=== PATIENT | male | born 1985 | race Caucasian/White ===

== ENCOUNTER 2021-12-22 12:49 | Inpatient (IN) | payer BC ==
[~2021-12-22] VITALS: Ht 190.5 cm; Wt 86.2 kg
--- NOTE | 2021-12-22 12:58 | NUR ---
TO ER BED 10. BIBS C/O ABDOMINAL PAIN, NAUSEA AND VOMITING X10 DAYS WORSENED THE LAST 3 DAYS.
[2021-12-22 13:46] LABS: BASOPHILS % (AUTO) 0.4 % (0.0-2.0); EOSINOPHILS % (AUTO) 0.4 % (0.0-6.0); HEMATOCRIT 47 % (39-51); HEMOGLOBIN 16.3 g/dL (13.5-17.5); LYMPHOCYTES % (AUTO) 11.6 % (20.0-44.0); MEAN CORPUSCULAR HGB CONC 35 g/dl (31.0-36.0); MEAN CORPUSCULAR VOLUME 88 fL (80-96); MONOCYTES # (AUTO) 0.4 K/uL (0.1-1.30); MONOCYTES % (AUTO) 4.5 % (2.0-12.0); NEUTROPHILS # (AUTO) 7.3 K/uL (1.8-8.9); NEUTROPHILS % (AUTO) 83.1 % (43.0-81.0); PLATELET COUNT (AUTO) 168 K/uL (150-450); RED BLOOD CELL COUNT(AUTO) 5.36 MIL/uL (4.5-6.0); WHITE BLOOD COUNT (AUTO) 8.8 K/uL (4.3-11.0)
--- NOTE | 2021-12-22 13:47 | NUR ---
DR ARELLANO AT THE BEDSIDE
[2021-12-22] MEDS ORDERED: ONDANSETRON HCL/PF 4 MG/2 ML VIAL ONE (13:50)
[2021-12-22] MEDS ORDERED: KETOROLAC TROMETHAMINE INJ 30 MG/ML VIAL ONE (13:50)
[2021-12-22] MEDS ORDERED: IV NS 0.9% 1,000 ML BAG IV ONE (14:00)
[2021-12-22] MEDS ORDERED: ONDANSETRON HCL/PF 4 MG/2 ML VIAL IVP ONE (14:00)
[2021-12-22] MEDS ORDERED: KETOROLAC TROMETHAMINE INJ 30 MG/ML VIAL IV ONE (14:00)
[2021-12-22 14:03] LABS: ALBUMIN 3.9 g/dL (3.4-5.0); BILIRUBIN,DIRECT 0.1 mg/dL (0.0-0.2); BILIRUBIN,TOTAL 0.6 mg/dL (0.2-1.0); CALCIUM, SERUM 8.9 mg/dL (8.5-10.1); CREATININE 0.9 mg/dL (0.6-1.3); POTASSIUM 3.8 mmol/L (3.5-5.1); TOTAL PROTEIN, SERUM 7.3 g/dL (6.4-8.2)
--- NOTE | 2021-12-22 15:02 | NUR ---
COVID TEST COLLECTED AND SENT
--- NOTE | 2021-12-22 17:40 | NUR ---
REPORT GIVEN TO DONATO FOR [facility]
[2021-12-22] MEDS ORDERED: ONDANSETRON HCL/PF 4 MG/2 ML VIAL IVP PRN (18:00)
[2021-12-22] MEDS ORDERED: MORPHINE SULFATE INJ 2 MG/ML DISP.SYRIN IV PRN (18:00)
--- NOTE | 2021-12-22 20:00 | NUR ---
[facility] SWAB COLLECTED AND SENT TO LAB. PATIENT'S BELONGINGS LIST DONE.
--- NOTE | 2021-12-22 20:25 | NUR ---
REPORT GIVEN TO JACKI PHILLIPS FOR [facility]
--- NOTE | 2021-12-22 20:30 | NUR ---
PT TRANSPORTED TO ROOM 115 VIA GURNEY WITHOUT INCIDENT
[2021-12-22 20:31] VITALS: BP 140/81
--- NOTE | 2021-12-22 20:31 | NUR ---
ANIMAL PATHOLOGIST NOTES: RECEIVED REPORT FROM JACQUELINE WELSH. PT TRANSFERRED VIA GURNEY, PLACED IN ROOM 115 BED 2. PT AWAKE, ALERT/ORIENTED X4 AND VERBALLY RESPONSIVE. ON ROOM AIR AND PT TOLERATED WELL. O2 SAT 95%. BREATHING EVEN AND UNLABORED. IV ACCESS ON RAC#18G INTACT AND PATENT. NO S/S OF INFILTRATIONS. WILL START NS AT 75CC/HR. BODY ASSESSMENT DONE. NO OPEN SKIN OE SKIN DISCOLORATIONS. NOTED PT HAS TATTOOS ALL OVER HIS BODY. STILL C/O ABDOMINAL PAIN. NO ACUTE DISTRESS. PROVIDED URINAL. ALL SAFETY MEASURES IN PLACE. BED IN LOWEST POSITION AND LOCKED. SIDE RAILS UP X2, PLACE CALL LIGHT WITH IN REACH. WILL CONTINUE TO MONITOR
[2021-12-22] MEDS: IV NS 0.9% 1,000 ML IV PRN (21:09)
[2021-12-22] MEDS: PANTOPRAZOLE 40 MG VIAL IV SCH (21:09)
[2021-12-22] MEDS: ACETAMINOPHEN 325 MG TABLET PO PRN (21:10)
--- NOTE | 2021-12-22 21:15 | NUR ---
RN NOTES: PT C/O ABDOMINAL PAIN. UNABLE TO GIVE MORPHINE BECAUSE PT IS ALLERGY TO MORPHINE. TYLENOL 325 MG 2 TABS GIVEN PER PRN ORDER AND PT TOLERATED WELL. WILL CONTINUE TO MONITOR
[2021-12-22] MEDS ORDERED: HYDROMORPHONE 1 MG/1 ML DISP.SYRIN IV ONE (22:30)
--- NOTE | 2021-12-22 22:39 | NUR ---
RN NOTES: NOTIFIED DR. KAY REGARDING PT WANTS STRONG PAIN MEDICATION AND MENTIONED PT IS ALLERGIC TO MORPHINE. ORDER- DILAUDID 1 MG IV ONE TIME. ASKED IF IT OKAY TO GIVE DILAUDID. ORDER SAID YES. ORDER NOTED AND CARRIED OUT.
--- NOTE | 2021-12-23 00:19 | NUR ---
RN NOTES: PT C/O UNABLE TO SLEEP, WANTS SOMETHING FOR SLEEPING. NOTIFIED DR. CRENSHAW. ORDER- TRAZODONE 100 MG TAB QHS. ORDER NOTED AND CARRIED OUT.
[2021-12-23] MEDS: TRAZODONE 50 MG TABLET PO SCH ×2 (00:24→22:02)
[2021-12-23 04:00] VITALS: BP 123/75
[2021-12-23] MEDS ORDERED: HYDROMORPHONE 1 MG/1 ML DISP.SYRIN IV ONE (05:10)
--- NOTE | 2021-12-23 05:30 | NUR ---
RN NOTES: PT C/O SEVERE ABDOMEN PAIN, 8/10 PAIN SCALE. DILAUDID 1 ML GIVEN ONE TIME. PT TOLERATED WELL. WILL CONTINUE TO MONITOR
--- NOTE | 2021-12-23 06:34 | NUR ---
RN CLOSING NOTES: PT AWAKE, ALERT/ORIENTED X4 AND VERBALLY RESPONSIVE. ON ROOM AIR AND PT TOLERATED WELL. O2 SAT 98%. BREATHING EVEN AND UNLABORED. IV ACCESS ON RAC#18G INTACT AND PATENT. NO S/S OF INFILTRATIONS. RUNNING NS AT 75CC/HR. NO C/O PAIN OR DISCOMFORT. NO ACUTE DISTRESS. ALL DUE MEDS GIVEN PER ORDERED. ALL SAFETY MEASURES IN PLACE. BED IN LOWEST POSITION AND LOCKED. SIDE RAILS UP X2, PLACE CALL LIGHT WITH IN REACH. WILL ENDORSE TO MORNING SHIFT NURSE.
--- NOTE | 2021-12-23 07:18 | NUR ---
RN AM NOTE: PATIENT IS ALERT , ORIENTED TIMES 3 , AMBULATORY , ON ROOM AIR , BREATHING EVEN AND UNLABORED C/O PAIN OF THE ABDOMEN DULL ON AND OFF 11/01 , ON CLEAR LIQUID DIET .PATIENT RECEIVING NS IV 75 CC/HR , JOSEPH IV ACCESS 18 G, NO S/S OF THE INFILTRATION.ALL SAFETY MEASURES IN PLACE. BED IN LOWEST POSITION AND LOCKED. SIDE RAILS UP X2, PLACE CALL LIGHT WITH IN REACH. WILL CONTINUE TO MONITOR
[2021-12-23 07:37] LABS: BASOPHILS % (AUTO) 0.6 % (0.0-2.0); EOSINOPHILS % (AUTO) 3.4 % (0.0-6.0); HEMATOCRIT 44 % (39-51); HEMOGLOBIN 14.9 g/dL (13.5-17.5); LYMPHOCYTES # (AUTO) 1.4 K/uL (0.8-4.8); LYMPHOCYTES % (AUTO) 26.2 % (20.0-44.0); MEAN CORPUSCULAR HGB CONC 34 g/dl (31.0-36.0); MEAN CORPUSCULAR VOLUME 89 fL (80-96); MONOCYTES # (AUTO) 0.4 K/uL (0.1-1.30); MONOCYTES % (AUTO) 6.6 % (2.0-12.0); NEUTROPHILS # (AUTO) 3.5 K/uL (1.8-8.9); NEUTROPHILS % (AUTO) 63.2 % (43.0-81.0); PLATELET COUNT (AUTO) 118 K/uL (150-450); RED BLOOD CELL COUNT(AUTO) 4.95 MIL/uL (4.5-6.0); WHITE BLOOD COUNT (AUTO) 5.5 K/uL (4.3-11.0)
[2021-12-23 07:46] LABS: CREATININE 0.8 mg/dL (0.6-1.3); MAGNESIUM 1.8 mg/dL (1.8-2.4); PHOSPHORUS 3.6 mg/dL (2.5-4.9); POTASSIUM 3.6 mmol/L (3.5-5.1)
[2021-12-23 08:00] VITALS: BP 118/69
[2021-12-23] MEDS: PANTOPRAZOLE 40 MG VIAL IV SCH (08:02)
[2021-12-23] MEDS: NICOTINE PATCH (21MG) 21 MG PATCH.TD24 TD SCH (08:02)
[2021-12-23] MEDS ORDERED: DIATR MEGLU/DIATRIZOATE SODIUM 120 ML BOTTLE (GASTROGRAPHIN) ONE ×2 (09:13→10:46)
[2021-12-23] MEDS: ACETAMINOPHEN 325 MG TABLET PO PRN ×2 (12:01→16:58)
--- NOTE | 2021-12-23 12:03 | NUR ---
RN NOTE PATIENT BACK FROM THE XR STUDY , C/O ABDOMEN PAIN 01/01 , TYLENOL 650 MG GIVEN
[2021-12-23 12:06] VITALS: BP 132/83
--- NOTE | 2021-12-23 12:18 | NUR ---
EN NOTE PATIENT IS BACK FROM XR STUDY RESUME NS INFUSION AT 75 ML/HR
[2021-12-23] MEDS: IV NS 0.9% 1,000 ML IV PRN (12:36)
--- NOTE | 2021-12-23 14:00 | NUR ---
RN NOTE RAC IV ACCESS GOT INFILTRATED , NEW IV ACSESS STARTED ON LAC . PATIENT TOLERATED PROCEDURE WELL , STERIL TECHNIQUE WAS OBSERVED .
--- NOTE | 2021-12-23 14:04 | NUR ---
RN NOTE PATIENT DEVELOPED ADOMINAL PAIN 03/03 , MD WAS NOTIFIED
[2021-12-23] MEDS: HYDROMORPHONE 1 MG/1 ML DISP.SYRIN IV PRN ×3 (14:33→23:08)
--- NOTE | 2021-12-23 14:45 | NUR ---
EN NOTE ORDER RECEIVED FOR DILAUDID 1MG/1ML IV PRN EVERY 4 HR , ADMINISTERED AT 14:40 , PATIENT TOLERATED INFUSION WELL .
--- NOTE | 2021-12-23 17:00 | NUR ---
RN NOTE PATIENT COMPLAINED OF PAIN OF THE STOMACK 01/01 , TYLENOL 650 MG ORALLY PROVIDED PER PRN ORDER.
--- NOTE | 2021-12-23 18:24 | NUR ---
RN CLOSING NOTE PT AWAKE, ALERT/ORIENTED X4 AND VERBALLY RESPONSIVE. AMBULATES TO THE RESTROOM . PATIENT BREATHING FREELY ON ROOM AIR , O2 SAT 96 %, NO ACUTE DISTRESS. PATIENT HAS CONTINUES PAIN OF THE ABDOMEN , CONTROLLED WITH TYLENOL PRN EVERY 6 HR AND DILAUDID 1 MF IV EVERY 4V HR NEEDED. XR STUDY WAS DONE TODAY RESULT IS PENDING IV ACCESS SITE WAS CHANGED TO THE LAC 22 G , INTACT AND RUNNING NS AT 75 ML PER HR. ALL MEDICATIONS WERE GIVEN PER MD ORDER.ALL SAFETY MEASURES IN PLACE. BED IN LOWEST POSITION AND LOCKED. SIDE RAILS UP X2, PLACE CALL LIGHT WITH IN REACH.
--- NOTE | 2021-12-23 19:45 | NUR ---
RN OPENING NOTES: RECEIVED PT IN BED, AWAKE, ALERT/ORIENTED X4 AND VERBALLY RESPONSIVE. ON ROOM AIR AND PT TOLERATED WELL. BREATHING EVEN AND UNLABORED. IV ACCESS ON LAC#22G INTACT AND PATENT. NO S/S OF INFILTRATIONS. RUNNING NS AT 75CC/HR. DILAUDID GIVEN DURING PREVIOUS SHIFT. NO ACUTE DISTRESS. ALL SAFETY MEASURES IN PLACE. BED IN LOWEST POSITION AND LOCKED. SIDE RAILS UP X2, PLACE CALL LIGHT WITH IN REACH. WILL CONTINUE TO MONITOR
[2021-12-23 20:00] VITALS: BP 147/78
--- NOTE | 2021-12-23 23:15 | NUR ---
RN NOTES: PT C/O SEVERE ABDOMEN PAIN, 9/10 PAIN SCALE. DILAUDID 1 ML GIVEN PER PRN ORDER. PT TOLERATED WELL. WILL CONTINUE TO MONITOR.
[2021-12-24] MEDS: HYDROMORPHONE 1 MG/1 ML DISP.SYRIN IV PRN ×4 (03:58→09:42)
[2021-12-24 04:00] VITALS: BP 145/80
--- NOTE | 2021-12-24 04:03 | NUR ---
RN NOTES: PT STILL C/O SEVERE ABDOMEN PAIN, 9/10 PAIN SCALE. DILAUDID 1 ML GIVEN PER PRN ORDER. PT TOLERATED WELL. WILL CONTINUE TO MONITOR.
[2021-12-24] MEDS: IV NS 0.9% 1,000 ML IV PRN (06:04)
[2021-12-24 06:30] LABS: BASOPHILS % (AUTO) 0.7 % (0.0-2.0); EOSINOPHILS % (AUTO) 5.7 % (0.0-6.0); HEMATOCRIT 41 % (39-51); HEMOGLOBIN 13.8 g/dL (13.5-17.5); LYMPHOCYTES # (AUTO) 1.3 K/uL (0.8-4.8); LYMPHOCYTES % (AUTO) 24.1 % (20.0-44.0); MEAN CORPUSCULAR HGB CONC 34 g/dl (31.0-36.0); MEAN CORPUSCULAR VOLUME 89 fL (80-96); MONOCYTES # (AUTO) 0.4 K/uL (0.1-1.30); MONOCYTES % (AUTO) 7.6 % (2.0-12.0); NEUTROPHILS # (AUTO) 3.3 K/uL (1.8-8.9); NEUTROPHILS % (AUTO) 61.9 % (43.0-81.0); PLATELET COUNT (AUTO) 106 K/uL (150-450); RED BLOOD CELL COUNT(AUTO) 4.62 MIL/uL (4.5-6.0); WHITE BLOOD COUNT (AUTO) 5.3 K/uL (4.3-11.0)
--- NOTE | 2021-12-24 06:45 | NUR ---
RN CLOSING NOTES: PT IN BED, AWAKE, ALERT/ORIENTED X4 AND VERBALLY RESPONSIVE. ON ROOM AIR AND PT TOLERATED WELL. O2 SAT 96%. BREATHING EVEN AND UNLABORED. IV ACCESS ON LAC#22G NOTED SLIGHT LEAKING. NEW SALINE LOCK INSERTED ON RFA#24G INTACT AND PATENT. NO S/S OF INFILTRATIONS. RUNNING NS AT 75CC/HR. NO C/O PAIN AT THIS MOMENT. NO ACUTE DISTRESS. ALL DUE MEDS GIVEN ORDERED. ALL SAFETY MEASURES IN PLACE. BED IN LOWEST POSITION AND LOCKED. SIDE RAILS UP X2, PLACE CALL LIGHT WITH IN REACH. WILL ENDORSE TO MORNING SHIFT NURSE.
[2021-12-24 07:10] LABS: CALCIUM, SERUM 8.7 mg/dL (8.5-10.1); CREATININE 0.7 mg/dL (0.6-1.3); MAGNESIUM 1.6 mg/dL (1.8-2.4); PHOSPHORUS 3.3 mg/dL (2.5-4.9); POTASSIUM 3.5 mmol/L (3.5-5.1)
--- NOTE | 2021-12-24 07:30 | NUR ---
RN OPENING NOTE PATIENT IS IN BED AWAKE, ALERT ORIENTED X 4. ON ROOM AIR WITH OXYGEN SATURATION AT 95%. VERBALIZES PAIN, 3/10. WITH LEFT ANTECUBITAL LINE INFUSING WITH NS AT 75 ML/HR. WITH RIGHT FOREARM GAUGE 24 SALINE LOCK, INTACT AND PATENT. NOT IN ANY FORM OF DISTRESS. BED IS LOCKED IN LOWEST POSITION, 3 SIDE RAILS UP, CALL LIGHT WITHIN REACH. WILL CONTINUE TO MONITOR THROUGHOUT THE SHIFT.
[2021-12-24 08:00] VITALS: BP 145/79
[2021-12-24] MEDS ORDERED: PANTOPRAZOLE 40 MG TABLET.DR PO SCH (09:00)
[2021-12-24] MEDS: NICOTINE PATCH (21MG) 21 MG PATCH.TD24 TD SCH (09:04)
--- NOTE | 2021-12-24 09:10 | NUR ---
RN NOTE PATIENT COMPLAINED OF PAIN 03/03. BEFORE GIVING,DILAUDID, IV WAS FOUND TO BE DISLODGED. INFORMED PATIENT THAT IV REINSERTION WILL BE DONE. PATIENT REFUSED DILAUDID INSTEAD AND ASKED FOR TYLENOL. REASON FOR REFUSAL IS THAT HE WILL BE DISCHARGED AND HE DOESN'T WANT TO BE DROWSY BEFORE GOING HOME. SINCE DILAUDID IV MEDICATION WAS ALREADY OPENED, IT WAS DISCARDED WASTE PER HOSPITAL PROTOCOL.
[2021-12-24] MEDS: ACETAMINOPHEN 325 MG TABLET PO PRN (09:52)
[2021-12-24] MEDS ORDERED: MAGNESIUM OXIDE 400 MG TABLET PO ONE (10:30)
--- NOTE | 2021-12-24 11:00 | NUR ---
RN CLOSING NOTE PATIENT IS DISCHARGED TO HOME IN STABLE CONDITION,AMBULATORY, AND NOT IN ANY FORM OF DISTRESS. VERBALIZED PAIN RELIEF AFTER TAKING TYLENOL PRN FOR PAIN. DISCHARGE PACKET AND PATIENT EDUCATION GIVEN. IV LINE DISCONTINUED, AND CANNULA WAS INSPECTED TO BE COMPLETE AND INTACT. DISCHARGE VITAL SIGNS: T 98.2, HR 59, RR 20, O2 SATURATION 97, BP 145/79. Addendum: 12/24/21 at 1312 by FAVIO HALE RN PATIENT IN A HURRY TO GO HOME. REFUSED TO SIGN BELONGINGS CHECKLIST, AND STATED "I HAVE ALL MY BELONGINGS WITH ME."
== END 2021-12-24 12:00 | disposition home or self-care (01) | DRG 390 ==
LOC: ER 12:49 → TRANSITION 19:25 → MEDSG1 19:30
PROVIDERS: ADMIT Nurse Practitioner Acute Care; ATTEND Nurse Practitioner Acute Care
DX: K56.1 Intussusception (principal); F17.210 Nicotine dependence, cigarettes, uncomplicated; Z20.822 Contact with and (suspected) exposure to COVID-19; Z88.5 Allergy status to narcotic agent; K56.7 Ileus, unspecified
CPT/HCPCS: 36415; 74021; 74250-TC; 80048-TC; 80061-TC; 80076-TC; 83690-TC; 83735-TC; 84100-TC; 85025-TC; 85730-TC; 86850-TC; 87081-TC; C9113; C9803; G0378; J1170; J1885; J2405; J7030; Q9963

== ENCOUNTER 2022-01-04 16:11 | Emergency (ER) | payer BC ==
[~2022-01-04] VITALS: Ht 190.5 cm; Wt 86.2 kg
--- NOTE | 2022-01-04 16:11 | NUR ---
BIB [facility] FROM HOME PT ADMITTED TO DRINKING A LOT THE PAST COUPLE DAYS AND CALLED 911 DENIES ANY PAIN. VITALS ARE WITHIN NORMAL LIMITS, NO RESP DISTRESS NOTED.
[2022-01-04 16:12] VITALS: BP 125/98
--- NOTE | 2022-01-04 16:35 | NUR ---
PT ELOPED FROM THE EMERGENCY ROOM, WALKED BY THE NURSES STATION AND STATED THAT HE WAS GOING AGAINST MEDICAL ADVICE AND DID NOT WANT TO STAY WITHIN THE FACILITY. PT KLEFT WALKING IN STABLE CONDITION.
== END 2022-01-04 16:35 | disposition left against medical advice (07) ==
LOC: ER 16:17
DX: F10.129 Alcohol abuse with intoxication, unspecified (principal); Z88.6 Allergy status to analgesic agent; Z60.2 Problems related to living alone; Y90.9 Presence of alcohol in blood, level not specified